=== PATIENT | male | born 1995 | race Caucasian/White ===

== ENCOUNTER 2023-09-18 13:49 | Emergency (ER) | payer BC, SELFPAY ==
--- NOTE | ~2023-09-18 | XR_ITS ---
EXAM: XR hand RT 2V DATE: 09/18/2023 16:31 HISTORY: post-reduction . COMPARISON: Same date at 2:02 PM. FINDINGS/IMPRESSION: Redemonstration of the right fourth and fifth metacarpal boxer's fractures, with decreased anterior angulation. Reviewed, dictated and finalized at location K. ING MILL OPERATOR
--- NOTE | ~2023-09-18 | XR_ITS ---
EXAM: XR hand RT min 3V DATE: 09/18/2023 14:06 HISTORY: right hand pain, injury . COMPARISON: None available. FINDINGS: Normal mineralization. Mildly comminuted fractures of the distal right fourth and fifth me tacarpal shafts with anterior angulation.. No lytic or blastic lesion. Joint spaces are maintained. N o erosion or periosteal change. Soft tissues within normal limits. IMPRESSION: Boxers fractures of the fourth and fifth digits. Reviewed, dictated and finalized at location K. ERCIAL FLOOR COVERING INSTALLER
[2023-09-18 13:51] VITALS: BP 151/91; PULSE 112; RESP 18; TEMP 36.4; O2SAT 100
--- NOTE | 2023-09-18 15:02 | ED.UPPEXIN ---
HPI - Extremity Injury (Upper) General Chief Complaint: Extremity Injury, Upper Stated Complaint: punched a post with right hand Time Seen by Provider: 09/18/23 13:54 Source: patient Mode of arrival: ambulatory Limitations: no limitations History of Present Illness HPI narrative: This is a 28 year old male that presents to the ER for right hand injury sustained just prior to arrival. Reports he punched a metal pole yesterday. Reports swelling and pain to the area. Denies decreased ROM or numbness. Related Data Allergies Allergy/AdvReac Type Severity Reaction Status Date / Time amoxicillin [From Augmentin] Allergy Rash Verified 09/18/23 15:14 clavulanic acid Allergy Rash Verified 09/18/23 15:14 [From Augmentin] Review of Systems Review of Systems: CONSTITUTIONAL: Denies fever MUSCULOSKELETAL: Reports joint pain, and myalgia. NEUROLOGIC: Denies numbness, or weakness. All systems reviewed & are unremarkable except as noted in HPI and below PMFSH Past Medical History Medical History (Updated 09/18/23 @ 16:29 by Adia Tracy PA-C) No active medical problems Social History Social History (Updated 09/18/23 @ 15:03 by Adia Tracy PA-C) Substance use: never Exam Narrative: GENERAL: Well-appearing, well-nourished, and in no acute distress. HEAD: Normocephalic, atraumatic. EYES: EOMI. EXTREMITIES: Normal range of motion. Moderate edema about the right hand 4th and 5th metacarpals, tender to palpation. Normal radial pulse. Normal sensation SKIN: Warm, dry, no rash. NEURO: No focal deficits. Alert and oriented x3. PSYCH: Normal mood and affect Course Course Emergency Course: Patient agrees with plan of care Vital Signs Vital signs: Vital Signs Temperature 97.6 F 09/18/23 13:51 Pulse Rate 112 H 09/18/23 13:51 Respiratory Rate 18 09/18/23 13:51 Blood Pressure 151/91 H 09/18/23 13:51 Pulse Oximetry 100 09/18/23 13:51 Oxygen Delivery Room Air 09/18/23 13:51 Temperature 97.7 F 09/18/23 16:42 Pulse Rate 62 09/18/23 16:42 Respiratory Rate 18 09/18/23 16:42 Blood Pressure 126/89 09/18/23 16:42 Pulse Oximetry 100 09/18/23 16:42 Oxygen Delivery Room Air 09/18/23 13:51 Procedures Orthopedic Fracture Reduction Fracture #1: Fracture Reduction date: 09/18/23 Side: right Fracture Reduction Location: metacarpal Analgesia: other (Toradol, oxycodone) Pre-Procedure Neuro Vascular Exam: normal Technique: direct manipulation Post Reduction X-rays Demonstrate: acceptable reduction Post-reduction neuro exam: intact Post-reduction vascular exam: intact Splint Applied: Yes Patient Tolerated Procedure: well and no complications Orthopedic Splinting/Casting Injury #1: Splinting/Casting Date: 09/18/23 Splinting/Casting Time: 16:34 Side: right Upper Extremity Injury Location: hand Splint: customized in ED OCL: ulnar gutter Pre-Procedure Neuro Vascular Exam: normal Post-Procedure Neuro Vascular Exam: normal MDM - Extremity Injury (Upper) MDM Narrative Medical decision making narrative: Patient presents to the ER for right hand injury sustained yesterday. Reports punching a metal pole. Tachycardic upon arrival. This normalized with management of pain. He is neurovascularly intact. Right hand x-ray shows fractures of the fourth and fifth metacarpal bones. Patient placed in an ulnar gutter. Post-reduction x-ray shows some improvement in alignment. Patient will be given follow-up with hand surgery. He was given warnings to return to the ER Differential Diagnosis Differential diagnosis: Likely other (hand sprain, hand fracture) Imaging Data Radiologist's impression: ITS Impressions Hand X-Ray 09/18/23 14:41 IMPRESSION: Boxers fractures of the fourth and fifth digits. Critical Care Time Critical Care Time Critical Care Time:
[2023-09-18] MEDS: KETOROLAC 30 MG/ML VIAL (*BKC) IM (15:15)
[2023-09-18] MEDS: oxyCODONE HCL (*CRX) 5 MG TAB IR PO (15:15)
[2023-09-18 16:42] VITALS: BP 126/89; PULSE 62; RESP 18; TEMP 36.5; O2SAT 100
== END 2023-09-18 16:43 | disposition home or self-care (01) ==
PROVIDERS: Emergency Provider Physician Assistant
DX: S62.334A Displaced fracture of neck of fourth metacarpal bone, right hand, initial encounter for closed fracture (principal); S62.336A Displaced fracture of neck of fifth metacarpal bone, right hand, initial encounter for closed fracture; W22.09XA Striking against other stationary object, initial encounter
CPT/HCPCS: 26605; 26755; 73120; 73130; 96372; 99285; A9270; J1885

== ENCOUNTER 2023-09-22 01:01 | Day surgery (SDC) | payer BC, SELFPAY ==
[2023-09-19 15:35] VITALS: BMI 24.7
--- NOTE | 2023-09-19 15:39 | PC.NURSE ---
Report to the Outpatient Waiting Room, entrance under the green pavilion located off [facility], at time 0615 on date 09/22/23. Planned Procedure Time: 0815. Time changes happen often and if your time is changed the preop area will call you the afternoon before. - You and your visitor will be asked to self-screen and do not enter if you have any COVID symptoms. - A mask is optional within the hospital at this time. - No food OR DRINK from midnight until time of surgery. Take the following medications with a SIP of water the morning of surgery: PAIN PILL IF NEEDED DO NOT STOP ANY OF YOUR OTHER PRESCRIPTION MEDICATIONS PRIOR TO SURGERY ?EXCEPT THE FOLLOWING Medications to discontinue per physician: MOTRIN Date to take last dose: PER DR. JALLOH Please no make-up, nail romanian, hairspray, perfume, deodorant, or body powder the day of surgery. No jewelry (including any body piercings) or valuables the day of surgery, leave them at home. Please take a shower or bath the night before, or the morning of, surgery with an antibacterial soap. Wear comfortable, loose fitting clothing. - Jewelry must be removed prior to entering the operating room. Rings and piercings that are not removed may be cut off. - The hospital will not accept responsibility for valuables. - Please leave all valuables, including medications, at home the day of surgery. If you are going home after surgery, a licensed sprinkler driver must drive you home. - NO public transportation without another adult if you receive anesthesia. - We recommend that an adult stay with you for 24 hours following discharge. - We also recommend that you do not drive, make important decision, drink alcoholic beverages, or take any drugs that were not prescribed by your health care provider for at least 24 hours after your discharge time. Follow any additional instructions given to you from your surgeon. If you or anyone in your household have experienced Covid symptoms in the past week, please notify your surgeon or the nurse liaison at the phone number below for possible testing. Telephone instructions given to PT - KIERAN LIND and asked if any additional questions and then verbalized understanding. Patient advised to call surgeon office or pre surgery nurse liaison [phone] if any additional questions.
--- NOTE | ~2023-09-22 | XR_ITS ---
EXAMINATION: XR surgery orthopedic DATE: 09/22/2023 09:09 INDICATION: Right fifth metacarpal fracture. TECHNIQUE: 3 intraoperative spot fluoroscopic views of the right hand were obtained. I was not presen t. Fluoroscopy exposure time was 54 seconds. COMPARISON: Radiographs 09/18/2023 FINDINGS: There is a transverse fracture of neck of fifth metacarpal in near-anatomic alignment with fixation with 2 wires. There is a transverse fracture of neck of fourth metacarpal in near-anatomic a lignment. IMPRESSION: 1. Transverse fracture of neck of fifth metacarpal in near-anatomic alignment with wire fixation. 2. Transverse fracture of neck of fourth metacarpal in near-anatomic alignment. Reviewed, dictated and finalized at location A. SORTER IMPRESSION: 1. Transverse fracture of neck of fifth metacarpal in near-anatomic alignment w ith wire fixation. 2. Transverse fracture of neck of fourth metacarpal in near-anatomic alignment.
[2023-09-22 06:36] VITALS: BP 116/66; PULSE 56; RESP 18; TEMP 36.8; O2SAT 100
[2023-09-22] MEDS: LACTATED RINGERS 1,000 ML 30 ML IV CONT (07:06)
--- NOTE | 2023-09-22 07:23 | P.PNAN_ITS ---
Anes - Initial Pre Proc Eval Procedure: Operation Date: 09/22/23 08:15 Proposed Procedures p Right Fifth Finger Closed or Possible Open Reduction Internal Fixation or Pinning, Possible Fourth Metacarpal Closed Reduction Percutaneous Pinning - David Hammer MD Date/Time: 09/22/23 07:23 Surgeon: David Hammer MD Pre Op Diagnosis: Fracture of Neck of Metacarpal Bone of Right Hand Patient Data Age: 28 Gender: M Height: 1.83 m Weight: 83 kg Allergies Allergy/AdvReac Type Severity Reaction Status Date / Time amoxicillin [From Augmentin] Allergy Rash Verified 09/19/23 15:34 clavulanic acid Allergy Rash Verified 09/19/23 15:34 [From Augmentin] Home Medications Medication Instructions Recorded Confirmed Type hydrocodone 5 mg-acetaminophen 325 1 tablet PO Q6H PRN pain #20 tabs 09/18/23 09/19/23 Rx mg tablet ibuprofen 600 mg tablet 600 mg PO QID PRN Pain 09/19/23 09/19/23 History Patient hx anesthesia problems: none Family hx anesthesia problems: none Results Review: All pre-operative results and documents have been reviewed as part of the pre- operative evaluation. [facility] Past Medical History Medical History (Updated 09/22/23 @ 07:23 by Toño Olmos MD) Marijuana smoker No active medical problems Social History Social History (Updated 09/22/23 @ 07:24 by Toño Olmos MD) Smoking status: Current every day smoker Alcohol intake: current Drinks per week: 4 Substance use: current Substance use type: marijuana Other substance usage details: qd Living arrangements: with family Spiritual care concerns: No Anes - Eval Final PreProcedure Day of Procedure 09/22/23 07:23 Patient weight: normal Heart: regular rate and rhythm Lungs: clear to auscultation Airway: Mallampati scale class II Neurological: alert and oriented Last oral intake: >/= 8 hours ASA classification: II Emergent: no Anesthetic plan: proceed Anesthesia type and monitoring: general GIVS and standard monitoring Results Review: All pre-operative results and documents have been reviewed as part of the pre- operative evaluation. Informed Consent: The patient's anesthetic plan and its attendant risks and benefits were discussed with the patient/family/POA. Questions were solicited and answers provided to the satisfaction of the patient/family/POA.
--- NOTE | 2023-09-22 07:55 | WPDHPUPDATE1 ---
History and Physical Update Update Date/Time: 09/22/23 07:55 Patient seen and examined in pre-operative holding area. No interval change in medical history or symptoms. Continues to desire to proceed with right fifth metacarpal closed, possible open reduction and pinning possible closed reduction and pinning fourth metacarpal. Reviewed procedure, benefits, alternatives, post-op expectations and risks including but not limited to bleeding, infection, injury to tendon/nerve/vessel, decreased hand function, stiffness, RSD, no change or worsening of symptoms, malunion, nonunion. Reviewed possible use of assistants and their participation in care. Patient stated understanding and signed the consent form wishing to proceed.
--- NOTE | 2023-09-22 08:03 | P.OP_ITS ---
Procedure Note - Detailed Date of Procedure 09/22/23 Pre-op Diagnosis right fourth and fifth metacarpal fracture Post-op Diagnosis Same Procedure Performed right fifth metacarpal fracture closed reduction and pin fixation and closed treatment fourth metacarpal fracture. Surgeon David Hammer MD Web Press Roll Tender Claudia House PA-C Anesthesia MAC Description of Procedure Patient seen, consented and marked in pre-op area. taken back to or on stretcher in supine position. Timeout performed with anesthesia, surgeon and staff agreeing on patient's name, site and surgery to be performed. SCDs placed on LEs and inflated. Tourniquet placed on RUE. After anesthesia administered sedation I injected 6cc 1%lido and 0.5%marcaine plain for local. The RUE was prepped and draped in the usual sterile faschion. I exanguinated the RUE with an esmarch bandage and tourniquet infalted to 250mmHg. Mini c-arm was brought onto the field to verify displacement. Jahss maneuver performed to reduce right 5th MC fracture and then I proceedd with placing two 0.045 k-wires in crossing retrograde fashion down the metacarpal and across the fracture. This was verified on fluoro noting reduction of the fracture and sufficient pin positioning. The pins were trimmed. I evaluated the fourth metacarpal fracture which remained relatively nondisplaced and decision was made to continue with conservative mgmt. The pin sites were dressed with betadine soaked alcohol swabs, 4x4, carlo, ulnar gutter splint with fingers in straight position and sabino bandage after the tourniquet was let down noting the fingers were warm and well perfused. The patient was awaken from anesthesia and transferred to the recovery room in stable condition Claudia House PA-C was essential throughout procedure for positioning, fluoroscopy, instrumentation and dressing placement. Note: No outside radiologist services including reading and interpretation was ordered/requested/necessary for this procedure AM Billing Surgery - Charge Forward: Surgery Billing ([id number] and [id number], for Claudia House PA-C)
[2023-09-22] MEDS: ceFAZolin 2 GM/D5W 50 ML 2 GM/50 ML BAG IVPB (08:26)
[2023-09-22] MEDS: LIDOCAINE HCL 1% LOCAL INJ 20 ML VIAL 10 ML INFILTRATE (08:49)
[2023-09-22 09:07] VITALS: BP 101/61; PULSE 69; RESP 14; O2SAT 100
[2023-09-22 09:30] VITALS: BP 130/86; PULSE 73; RESP 20
[2023-09-22] MEDS: oxyCODONE HCL (*CRX) 5 MG TAB IR PO (09:31)
[2023-09-22 10:01] VITALS: BP 114/58; PULSE 51; RESP 20
[2023-09-22 10:09] VITALS: BP 114/66; PULSE 52; RESP 20
== END 2023-09-22 10:15 | disposition home or self-care (01) ==
PROVIDERS: Visit Provider Plastic Surgery
PROC: (CPT 26600; principal; 2023-09-22 08:15)
DX: S62.334A Displaced fracture of neck of fourth metacarpal bone, right hand, initial encounter for closed fracture (principal); S62.336A Displaced fracture of neck of fifth metacarpal bone, right hand, initial encounter for closed fracture; F12.90 Cannabis use, unspecified, uncomplicated; Z79.891 Long term (current) use of opiate analgesic; W22.09XA Striking against other stationary object, initial encounter
CPT/HCPCS: 26600; 26608; 99199; A9270; C1713; J0690; J1100; J2250; J2405; J2704; J3010; J7120

== ENCOUNTER 2023-10-05 09:01 | Outpatient (CLI) | payer BC, SELFPAY ==
--- NOTE | ~2023-10-05 | XR_ITS ---
XR hand RT min 3V 10/05/2023 09:18 Indication: Hand fracture. Procedure: 3 views right hand Comparison: Comparison to multiple prior studies sequentially, with oldest reviewed study dated 09/07. Findings: Nondisplaced fourth and fifth metacarpal neck fractures are redemonstrated. Interval placem ent of 2 K wires transfixing the fifth metacarpal fracture. There is overlying fiberglass cast. There is improved alignment of the fifth metacarpal fracture with reduced volar angulation. Impression: 1: Right fourth and fifth metacarpal neck fractures with improvement in alignment of the fifth metaca rpal fracture status post internal fixation with 2 K wires. Reviewed, dictated and finalized at location B. HNUT BATTER MIXER Impression: 1: Right fourth and fifth metacarpal neck fractures with improvement in alignme nt of the fifth metacarpal fracture status post internal fixation with 2 K wire s.
== END 2023-10-05 09:02 | disposition home or self-care (01) ==
PROVIDERS: PCP Plastic Surgery; Visit Provider Plastic Surgery
DX: S62.339D Displaced fracture of neck of unspecified metacarpal bone, subsequent encounter for fracture with routine healing (principal); X58.XXXD Exposure to other specified factors, subsequent encounter
CPT/HCPCS: 73130